=== PATIENT | male | born 1970 | race Hispanic/Latino ===

== ENCOUNTER → 2023-12-14 06:39 | Outpatient (REF) | payer OTHER, SELFPAY ==
[2023-12-14 07:48] LABS: Hematocrit 43.1 % (39.0-52.0); Mean Corp Hgb Conc. 34.8 g/dL (33.0-37.0); Mean Corpuscular Hgb 32.6 pg (27.0-31.0); Mean Corpuscular Volume 93.7 fL (80.0-94.0); Mean Platelet Volume 9.9 fL (7.4-10.4); Platelet Count 223 10^3/uL (130-400); Red Cell Dist. Width 13.2 % (11.5-14.5); White Blood Cell Count 6.2 10^3/uL (4.8-10.8)
[2023-12-14 08:15] LABS: ALT (SGPT) 21 U/L (0-50); AST (SGOT) 23 U/L (17-59); Albumin 4.4 g/dl (3.5-5.0); Alkaline Phosphatase 62 U/L (38-126); Blood Urea Nitrogen 24 mg/dl (9-20); Calcium 9.7 mg/dl (8.4-10.2); Carbon Dioxide 29 mmol/L (22-30); Chloride 103 mmol/L (98-107); Glucose 98 mg/dl (70-99); HDL Cholesterol 47 mg/dl; LDL Cholesterol, Calculated 93 mg/dl; Potassium 5.8 mmol/L (3.5-5.1); Sodium 141 mmol/L (135-145); Total Bilirubin 0.7 mg/dl (0.2-1.3); Total Cholesterol 160 mg/dl (50-199); Total Protein 7.1 g/dl (6.3-8.2); Triglyceride 104 mg/dl (10-149); Very Low Density Lipoprotein 20 mg/dl (0-30); eGFR > 60.00
[2023-12-14 08:43] LABS: PSA, Total - Screen 1.27 ng/ml (0.0-4.0)
== END ==
LOC: CLINIC 06:39
PROVIDERS: ATTENDING PHYSICIAN Nurse Practitioner Adult Health
DX: Z00.00 Encounter for general adult medical examination without abnormal findings (principal); Z80.42 Family history of malignant neoplasm of prostate
CPT/HCPCS: 36415; 80053; 80061; 85027; G0103

== ENCOUNTER → 2023-12-15 07:15 | Outpatient (REF) | payer OTHER, SELFPAY ==
[2023-12-16 15:36] LABS: FIT-Fecal Occult Blood Interp Negative
== END ==
LOC: REG 07:15
PROVIDERS: ATTENDING PHYSICIAN Nurse Practitioner Adult Health
DX: Z12.11 Encounter for screening for malignant neoplasm of colon (principal)
CPT/HCPCS: 83520

== ENCOUNTER → 2024-01-17 07:01 | Outpatient (REF) | payer OTHER, SELFPAY ==
[2024-01-17 08:18] LABS: Blood Urea Nitrogen 22 mg/dl (9-20); Calcium 9.4 mg/dl (8.4-10.2); Carbon Dioxide 28 mmol/L (22-30); Chloride 102 mmol/L (98-107); Glucose 100 mg/dl (70-99); Potassium 4.6 mmol/L (3.5-5.1); Sodium 142 mmol/L (135-145); eGFR > 60.00
== END ==
LOC: REG 07:01
PROVIDERS: ATTENDING PHYSICIAN Nurse Practitioner Adult Health
DX: E87.5 Hyperkalemia (principal)
CPT/HCPCS: 36415; 80048

== ENCOUNTER → 2025-01-12 07:51 | Outpatient (REF) | payer OTHER, SELFPAY ==
[2025-01-12 08:48] LABS: Hematocrit 45.6 % (39.0-52.0); Hemoglobin 15.6 g/dL (13.0-18.0); Mean Corp Hgb Conc. 34.2 g/dL (33.0-37.0); Mean Corpuscular Volume 97.2 fL (80.0-94.0); Platelet Count 180 10^3/uL (130-400); Red Cell Dist. Width 13.4 % (11.5-14.5)
[2025-01-12 09:33] LABS: ALT (SGPT) 22 U/L (0-50); AST (SGOT) 20 U/L (17-59); Albumin 4.4 g/dl (3.5-5.0); Alkaline Phosphatase 58 U/L (38-126); Blood Urea Nitrogen 19 mg/dl (9-20); Calcium 9.1 mg/dl (8.4-10.2); Carbon Dioxide 28 mmol/L (22-30); Chloride 105 mmol/L (98-107); Glucose 88 mg/dl (70-99); HDL Cholesterol 46 mg/dl; LDL Cholesterol, Calculated 118 mg/dl; Potassium 4.4 mmol/L (3.5-5.1); Sodium 136 mmol/L (135-145); Total Protein 7.4 g/dl (6.3-8.2); Very Low Density Lipoprotein 15 mg/dl (0-30); eGFR > 60.00
[2025-01-12 09:51] LABS: PSA, Total - Screen 1.07 ng/ml (0.0-4.0)
== END ==
LOC: CLINIC 07:51
PROVIDERS: ATTENDING PHYSICIAN Nurse Practitioner Adult Health
DX: Z00.00 Encounter for general adult medical examination without abnormal findings (principal)
CPT/HCPCS: 36415; 80053; 80061; 84443; 85027; G0103

== ENCOUNTER → 2025-01-14 07:28 | Outpatient (REF) | payer OTHER, SELFPAY ==
[2025-01-16 16:45] LABS: FIT-Fecal Occult Blood Interp Negative
== END ==
LOC: CLINIC 07:28
PROVIDERS: ATTENDING PHYSICIAN Nurse Practitioner Adult Health
DX: Z12.11 Encounter for screening for malignant neoplasm of colon (principal); Z80.42 Family history of malignant neoplasm of prostate
CPT/HCPCS: 83520